=== PATIENT | male | born 1975 | race Caucasian/White ===

== ENCOUNTER 2018-06-07 10:07 | Day surgery (SDC) | payer OTHER ==
[~2018-06-07 10:07] MED LIST: CEFAZOLIN 2 GM/50 ML (PMX) 50 ML IVPB
[2018-06-07] MEDS ORDERED: NEOSTIGMINE 3 MG/3 ML SYRINGE (12:27)
[2018-06-07] MEDS ORDERED: ROCURONIUM 50 MG INJ (12:27)
[2018-06-07] MEDS ORDERED: CEFAZOLIN 1 GM INJ (12:27)
[2018-06-07] MEDS ORDERED: PROPOFOL 20 ML (12:27)
[2018-06-07] MEDS ORDERED: GLYCOPYRROLATE 0.4 MG INJ (12:27)
[2018-06-07] MEDS ORDERED: MIDAZOLAM 1 MG/ML 2 ML INJ (12:28)
[2018-06-07] MEDS ORDERED: FENTAnyl 50 MCG/ML VIAL (12:28)
[2018-06-07] MEDS ORDERED: DEXAMETHASONE 4 MG/ML 1 ML INJ (12:28)
[2018-06-07] MEDS ORDERED: ONDANSETRON 4 MG INJ (12:28)
[2018-06-07] MEDS ORDERED: hydrALAzine 20 MG INJ IV (12:30)
[2018-06-07] MEDS ORDERED: ONDANSETRON 4 MG INJ IV (12:30)
[2018-06-07] MEDS ORDERED: ALBUTEROL 0.083% (NEB) 2.5 MG/3 ML AMP HHN (12:30)
[2018-06-07] MEDS ORDERED: DIPHENHYDRAMINE 50 MG INJ IV (12:30)
[2018-06-07] MEDS ORDERED: MEPERIDINE 25 MG INJ IV (12:30)
[2018-06-07] MEDS ORDERED: EPHEDrine SULFATE 50 MG/5 ML SYG IV (12:30)
[2018-06-07] MEDS ORDERED: MIDAZOLAM 1 MG/ML 2 ML INJ IV (12:30)
[2018-06-07] MEDS ORDERED: OXYCODONE/ACETAMINOPHEN (5/325) TAB PO ×2 (12:30)
[2018-06-07] MEDS ORDERED: HYDROmorphONE 1 MG/5 ML IV SYRINGE IV ×3 (12:30)
[2018-06-07] MEDS ORDERED: LABETALOL HCL 20MG INJ IV (12:30)
[2018-06-07] MEDS ORDERED: FENTAnyl 50 MCG/ML VIAL IV ×3 (12:30)
[2018-06-07] MEDS ORDERED: IPRATROPIUM (NEB) 0.5 MG/2.5 ML AMP HHN (12:30)
[2018-06-07] MEDS ORDERED: TRIMETHOBENZAMIDE 100 MG/ML VIAL IM (12:30)
[2018-06-07] MEDS: BUPIVACAINE 0.5% (SDV) 30 ML INJ (12:47)
[2018-06-07] MEDS: HYDROCODONE/APAP (5/325) TAB PO (15:09)
== END 2018-06-07 16:00 | disposition home or self-care (01) ==
LOC: SDS 10:07
DX: N43.3 Hydrocele, unspecified (principal)
CPT/HCPCS: 55500; 88304